=== PATIENT | female | born 1965 | race Two or more races ===

== ENCOUNTER 2025-07-01 13:23 | Inpatient (IN) | payer MEDICAID ==
[2025-07-01] VITALS (16 sets, daily range): BP systolic 60–170; BP diastolic 20–103; PULSE 92–111; RESP 26–47; TEMP 36.696; O2SAT 90–92
[~2025-07-01] VITALS: Ht 160 cm; Wt 89.8 kg
[2025-07-01] MEDS ORDERED: ALBU2.5V13 IH (13:31)
[2025-07-01] MEDS: SODIUM CHLORIDE 0.9% (SEPSIS BOLUS) IV ONE (13:53)
[2025-07-01] MEDS: ALBUTEROL (0.5%) 2.5MG/0.5ML NEB HHN ONE (14:01)
[2025-07-01] MEDS: IPRATROPIUM/ALBUTEROL 0.5-3(2.5)MG/3ML NEB HHN ONE (14:01)
[2025-07-01 14:03] LABS: BASOPHILS % 0.2 % (0.0-2.0); EOSINOPHILS % 0.0 % (0.0-5.0); HEMATOCRIT. 55.1 % (36.0-48.0); HEMOGLOBIN. 18.2 g/dL (12.0-16.0); LYMPHOCYTES % 10.6 % (20.0-50.0); MEAN PLATELET VOLUME 9.3 fl (7.4-10.4); MONOCYTES % 13.5 % (2.0-8.0); NEUTROPHILS % 75.7 % (40.0-76.0); PLATELET 191 x1000/uL (130-400); RED BLOOD CELL COUNT 6.04 mill/uL (4.2-5.4); RED CELL DISTRIBUTION WIDTH 13.6 % (11.6-14.6)
[2025-07-01] MEDS: PIPERACILLIN/TAZO 3.375G/50ML 50 ML IV ONE (14:04)
[2025-07-01] MEDS: METHYLPREDNISOLONE SOD SUCC 125MG/2ML (ACT-O-VIAL) IV ONE (14:04)
[2025-07-01 14:13] LABS: INR 1.0
[2025-07-01 14:17] LABS: CREATININE 2.9 mg/dL (0.6-1.0); UREA NITROGEN BLOOD 25 mg/dL (9-23)
[2025-07-01 14:18] LABS: TROPONIN I HIGH SENSITIVITY 6 ng/L (3.0-34)
[2025-07-01 14:19] LABS: ASPARTATE AMINOTRANSFERASE 63 IU/L (<34); BILIRUBIN DIRECT 0.1 mg/dL (<=3.0); BILIRUBIN TOTAL 0.4 mg/dL (0.1-1.0); PROTEIN TOTAL 6.7 g/dL (6.0-8.3)
[2025-07-01] MEDS: VANCOMYCIN 1G PREMIX 200 ML IV ONE (14:34)
[2025-07-01] MEDS ORDERED: IPRATROPIUM/ALBUTEROL 0.5-3(2.5)MG/3ML NEB HHN PRN (16:15)
[2025-07-01] MEDS ORDERED: MAGNESIUM/ALUMINUM HYDROXIDE/SIMETHICONE 30ML UDC PO PRN (16:15)
[2025-07-01] MEDS ORDERED: CLONIDINE 0.1MG TABLET PO PRN (16:15)
[2025-07-01] MEDS ORDERED: DOCUSATE SODIUM 100MG CAPSULE PO PRN (16:15)
[2025-07-01] MEDS: SODIUM CHLORIDE 0.9% 1,000 ML IV ONE (16:31)
[2025-07-01] MEDS: PANTOPRAZOLE SODIUM 40 MG/VIAL IV SCH (16:34)
[2025-07-01] MEDS ORDERED: VANCOMYCIN 500 MG in DEXT 5% WATER 100 ML IV SCH (16:45)
[2025-07-01 16:49] LABS: BG BASE EXCESS -8.9 mmol/L (-2.0-3.0); BG CARBOXYHEMOGLOBIN 0.2 % (0.5-1.5); BG DEOXYHEMOGLOBIN 0.9 % (0.0-5.0); BG FRACTION INSPIRED OXYGEN 60; BG HCO3 ACT 16.5 mmol/L (21.0-28.0); BG METHEMOGLOBIN 0.4 % (0.5-1.5); BG OXYGEN SATURATION 99.1 % (94.0-98.0); BG OXYHEMOGLOBIN 98.5 % (94.0-98.0); BG PCO2 35.0 mmHg (32.0-45.0); BG PH 7.291 (7.350-7.450); BG PO2 173.6 mmHg (83.0-108.0); BG SAMPLE SITE RIGHT RADIAL; BG TOTAL HEMOGLOBIN 19.2 g/dL (12.0-16.0); BG VENT MODE MASK - BIPAP; BG VENT RATE 14.0 set
[2025-07-01] MEDS ORDERED: AZITHROMYCIN 500MG/250ML 250 ML IV SCH (17:00)
[2025-07-01] MEDS ORDERED: LOSA50TA41 PO (17:58)
[2025-07-01] MEDS ORDERED: LEVO50TA8 PO (17:58)
[2025-07-01] MEDS: NOREPINEPHRINE 8MG/250ML PMX 250 ML IV PRN (18:37)
[2025-07-01] MEDS: SODIUM CHLORIDE 0.9% 500 ML IV NR (18:40)
[2025-07-01] MEDS ORDERED: PNEUMOCOCCAL 20-VAL CONJ-DIP CRM 0.5ML IM ONE (19:30)
[2025-07-01] MEDS: NOREPINEPHRINE 32 MG in DEXT 5% WATER 218 ML IV PRN (21:49)
[2025-07-01] MEDS: LACTATED RINGERS 1,000 ML IV SCH (21:50)
[2025-07-01] MEDS: CEFEPIME 1GM/50ML 50 ML IV SCH (21:50)
[2025-07-01] MEDS: AZITHROMYCIN 500MG/250ML 250 ML IV SCH (21:50)
[2025-07-01] MEDS: SENNOSIDES/DOCUSATE SOD 8.6/50MG TABLET PO SCH (21:50)
[2025-07-01] MEDS: ENOXAPARIN 30MG/0.3ML SYR SUBCUT SCH (21:51)
[2025-07-01] MEDS ORDERED: SODIUM CHLORIDE 0.9% 500 ML IV SCH (22:30)
[2025-07-01 23:17] LABS: TROPONIN I HIGH SENSITIVITY 9 ng/L (3.0-34)
[2025-07-02] VITALS (107 sets, daily range): BP systolic 54–155; BP diastolic 15–138; PULSE 95–166; RESP 11–52; TEMP 36.7–37.1; O2SAT 93–100
[2025-07-02] MEDS: IPRATROPIUM/ALBUTEROL 0.5-3(2.5)MG/3ML NEB HHN SCH (00:02)
[2025-07-02 00:07] LABS: HEPATITIS C AB NON REACTIVE (Neg) (Negative)
[2025-07-02 03:01] LABS: BG BASE EXCESS -13.5 mmol/L (-2.0-3.0); BG CARBOXYHEMOGLOBIN 0.3 % (0.5-1.5); BG DEOXYHEMOGLOBIN 4.7 % (0.0-5.0); BG FRACTION INSPIRED OXYGEN 30; BG HCO3 ACT 12.1 mmol/L (21.0-28.0); BG METHEMOGLOBIN 0.3 % (0.5-1.5); BG OXYGEN SATURATION 95.3 % (94.0-98.0); BG OXYHEMOGLOBIN 94.7 % (94.0-98.0); BG PCO2 29.5 mmHg (32.0-45.0); BG PH 7.230 (7.350-7.450); BG PO2 83.9 mmHg (83.0-108.0); BG SAMPLE SITE RIGHT BRACHIAL; BG TOTAL HEMOGLOBIN 21.6 g/dL (12.0-16.0); BG VENT MODE MASK - BIPAP
[2025-07-02] MEDS: MORPHINE SULFATE 2 MG/ML INJ (NOT FOR IM USE) IV NR (04:51)
[2025-07-02 06:10] LABS: BASOPHILS % 0.2 % (0.0-2.0); EOSINOPHILS % 0.0 % (0.0-5.0); HEMOGLOBIN. 19.9 g/dL (12.0-16.0); LYMPHOCYTES % 8.3 % (20.0-50.0); MEAN PLATELET VOLUME 9.3 fl (7.4-10.4); MONOCYTES % 12.7 % (2.0-8.0); NEUTROPHILS % 78.8 % (40.0-76.0); PLATELET 153 x1000/uL (130-400); RED BLOOD CELL COUNT 6.47 mill/uL (4.2-5.4); RED CELL DISTRIBUTION WIDTH 14.0 % (11.6-14.6)
[2025-07-02] MEDS: LEVOTHYROXINE SODIUM 50MCG TABLET PO SCH (06:25)
[2025-07-02 06:36] LABS: TROPONIN I HIGH SENSITIVITY 9.0 ng/L (3.0-34)
[2025-07-02 06:41] LABS: T4 FREE 1.26 ng/dL (0.89-1.76)
[2025-07-02 07:07] LABS: HEMATOCRIT. 60.4 % (36.0-48.0)
[2025-07-02] MEDS ORDERED: LIDOCAINE HCL 1% 10 MG/ML 10ML VIAL ONE ×3 (07:59→12:43)
[2025-07-02] MEDS: CEFEPIME 1GM/50ML 50 ML IV SCH (08:13)
[2025-07-02] MEDS: PHENYLEPHRINE 50MG/250ML PMX 250 ML IV PRN (08:38)
[2025-07-02] MEDS: VASOPRESSIN 20 UNIT in SODIUM CHLORIDE 0.9% 99 ML IV PRN (09:08)
[2025-07-02 09:40] LABS: CREATININE 3.7 mg/dL (0.6-1.0)
[2025-07-02 09:41] LABS: LDL CHOLESTEROL 90.0 mg/dL (5-100); TRIGLYCERIDE 631.0 mg/dL (0-150); UREA NITROGEN BLOOD 29.0 mg/dL (9-23)
[2025-07-02] MEDS: SODIUM BICARBONATE 8.4% 50MEQ/50ML SYR IV NR (09:53)
[2025-07-02 11:03] LABS: BG BASE EXCESS -5.8 mmol/L (-2.0-3.0); BG CARBOXYHEMOGLOBIN 0.3 % (0.5-1.5); BG DEOXYHEMOGLOBIN 3.2 % (0.0-5.0); BG FRACTION INSPIRED OXYGEN 40; BG HCO3 ACT 20.0 mmol/L (21.0-28.0); BG METHEMOGLOBIN 0.5 % (0.5-1.5); BG OXYGEN SATURATION 96.8 % (94.0-98.0); BG OXYHEMOGLOBIN 96.0 % (94.0-98.0); BG PCO2 41.0 mmHg (32.0-45.0); BG PH 7.307 (7.350-7.450); BG PO2 89.1 mmHg (83.0-108.0); BG SAMPLE SITE RIGHT RADIAL; BG TOTAL HEMOGLOBIN 20.5 g/dL (12.0-16.0); BG TOTAL RESPIRATORY RATE 42 b/min; BG VENT MODE MASK - BIPAP; BG VENT RATE 16.0 set
[2025-07-02] MEDS ORDERED: EPINEPHRINE 10 MG in SODIUM CHLORIDE 0.9% 240 ML IV PRN (11:15)
[2025-07-02] MEDS: VANCOMYCIN 1GM PMX (XELLIA) 200 ML IV SCH (12:11)
[2025-07-02] MEDS: SODIUM BICARBONATE 150 MEQ in DEXTROSE 5% WATER 850 ML IV SCH (12:50)
[2025-07-02 13:31] LABS: HEPATITIS A AB IGM NEGATIVE (Negative)
[2025-07-02 13:32] LABS: HEPATITIS B CORE AB IGM NEGATIVE (Negative); HEPATITIS C AB NON REACTIVE (Neg) (Negative)
[2025-07-02] MEDS ORDERED: DEXTROSE 50% WATER 50ML SYRINGE IV PRN (16:45)
[2025-07-02] MEDS ORDERED: FENTANYL CITRATE/PF 2,500 MCG in SODIUM CHLORIDE 0.9% 200 ML IV PRN (17:00)
[2025-07-02] MEDS: MIDAZOLAM 100MG/100ML PMX 100 ML IV PRN (17:14)
[2025-07-02] MEDS: BLOOD SUGAR DIAGNOSTIC STRIP TEST SCH (17:19)
[2025-07-02] MEDS: FENTANYL CITRATE/PF 2,500 MCG in SODIUM CHLORIDE 0.9% 200 ML IV PRN (17:35)
[2025-07-02] MEDS: INSULIN LISPRO 100 UNITS/ML SUBCUT SCH (18:53)
[2025-07-02] MEDS: METHYLPREDNISOLONE SOD SUCC 125MG/2ML (ACT-O-VIAL) IV SCH (18:53)
[2025-07-02 19:03] LABS: BG BASE EXCESS -2.8 mmol/L (-2.0-3.0); BG CARBOXYHEMOGLOBIN 0.2 % (0.5-1.5); BG DEOXYHEMOGLOBIN 0.2 % (0.0-5.0); BG FRACTION INSPIRED OXYGEN 100; BG HCO3 ACT 21.4 mmol/L (21.0-28.0); BG METHEMOGLOBIN 0.6 % (0.5-1.5); BG OXYGEN SATURATION 99.8 % (94.0-98.0); BG OXYHEMOGLOBIN 99.0 % (94.0-98.0); BG PCO2 36.6 mmHg (32.0-45.0); BG PEEP (cmH2O) 5.0 cmH2O; BG PH 7.385 (7.350-7.450); BG PO2 320.1 mmHg (83.0-108.0); BG SAMPLE SITE RIGHT RADIAL; BG TIDAL VOLUME(mL) 450.0 mL; BG TOTAL HEMOGLOBIN 21.0 g/dL (12.0-16.0); BG VENT MODE VENT - AC; BG VENT RATE 20.0 set
[2025-07-02] MEDS: PHENYLEPHRINE 100 MG in DEXT 5% WATER 240 ML IV PRN (20:51)
[2025-07-03] VITALS (107 sets, daily range): BP systolic 42–183; BP diastolic 21–142; PULSE 85–130; RESP 17–37; TEMP 36.2–36.9; O2SAT 91–100
[2025-07-03 05:33] LABS: BASOPHILS % 0.2 % (0.0-2.0); EOSINOPHILS % 1.9 % (0.0-5.0); HEMATOCRIT. 51.1 % (36.0-48.0); HEMOGLOBIN. 17.4 g/dL (12.0-16.0); LYMPHOCYTES % 9.3 % (20.0-50.0); MEAN PLATELET VOLUME 10.7 fl (7.4-10.4); MONOCYTES % 10.8 % (2.0-8.0); NEUTROPHILS % 77.8 % (40.0-76.0); PLATELET 136 x1000/uL (130-400); RED BLOOD CELL COUNT 5.71 mill/uL (4.2-5.4); RED CELL DISTRIBUTION WIDTH 13.6 % (11.6-14.6)
[2025-07-03 06:11] LABS: CREATININE 3.3 mg/dL (0.6-1.0); UREA NITROGEN BLOOD 31 mg/dL (9-23)
[2025-07-03 06:13] LABS: ASPARTATE AMINOTRANSFERASE 43 IU/L (<34); BILIRUBIN DIRECT 0.1 mg/dL (<=3.0); BILIRUBIN TOTAL 0.4 mg/dL (0.1-1.0); PHOSPHORUS 3.2 mg/dL (2.5-4.9)
[2025-07-03] MEDS ORDERED: DEXTROSE 50% WATER 50ML SYRINGE IV PRN (06:15)
[2025-07-03] MEDS ORDERED: INSULIN LISPRO 100 UNITS/ML SUBCUT ONE (06:15)
[2025-07-03 06:28] LABS: PROTEIN TOTAL 4.7 g/dL (6.0-8.3)
[2025-07-03] MEDS: INSULIN LISPRO 100 UNITS/ML SUBCUT SCH ×3 (06:29→11:03)
[2025-07-03 07:39] LABS: SODIUM URINE RANDOM 38 mEq/L
[2025-07-03] MEDS: BLOOD SUGAR DIAGNOSTIC STRIP TEST SCH (08:15)
[2025-07-03 09:41] LABS: OSMOLALITY URINE 396 mOsm/kg (500-850)
[2025-07-03] MEDS: METHYLPREDNISOLONE SOD SUCC 40MG/ML (ACT-O-VIAL) IV SCH (10:54)
[2025-07-03 11:01] LABS: BG BASE EXCESS 4.0 mmol/L (-2.0-3.0); BG CARBOXYHEMOGLOBIN 0.2 % (0.5-1.5); BG DEOXYHEMOGLOBIN 3.2 % (0.0-5.0); BG FRACTION INSPIRED OXYGEN 40; BG HCO3 ACT 26.5 mmol/L (21.0-28.0); BG METHEMOGLOBIN 0.4 % (0.5-1.5); BG OXYGEN SATURATION 96.8 % (94.0-98.0); BG OXYHEMOGLOBIN 96.2 % (94.0-98.0); BG PCO2 34.4 mmHg (32.0-45.0); BG PEEP (cmH2O) 5.0 cmH2O; BG PH 7.505 (7.350-7.450); BG PO2 84.6 mmHg (83.0-108.0); BG SAMPLE SITE RIGHT RADIAL; BG TIDAL VOLUME(mL) 450.0 mL; BG TOTAL HEMOGLOBIN 19.8 g/dL (12.0-16.0); BG TOTAL RESPIRATORY RATE 20 b/min; BG VENT MODE ROOM AIR; BG VENT RATE 20.0 set
[2025-07-03] MEDS: PHENYLEPHRINE 100 MG in SODIUM CHLORIDE 0.9% 240 ML IV PRN (18:44)
[2025-07-03 21:34] LABS: CLARITY URINE CLEAR (CLEAR); COLOR URINE YELLOW (YELLOW); GLUCOSE URINE 3+ (NEGATIVE); KETONES URINE TRACE (NEGATIVE); LEUKOCYTE ESTERASE URINE NEGATIVE (NEGATIVE); NITRITE URINE NEGATIVE (NEGATIVE); OCCULT BLOOD URINE 2+ (NEGATIVE); PH URINE 5.5 (4.5-8.0); PROTEIN URINE 2+ (NEGATIVE); SPECIFIC GRAVITY URINE 1.019 (1.005-1.030); UROBILINOGEN URINE 0.2 E.U./dL (0.2-1.0)
[2025-07-03 21:49] LABS: BACTERIA URINE 2+; SQUAMOUS EPITHELIAL CELL URINE FEW /lpf (RARE/1+)
[2025-07-03 21:50] LABS: COARSE GRANULAR CASTS URINE 0-5 /lpf; WBC URINE 0-2 /hpf (0-2)
[2025-07-04] VITALS (110 sets, daily range): BP systolic 58–142; BP diastolic 27–91; PULSE 87–185; RESP 0–31; TEMP 36.1–37.1; O2SAT 92–100
[2025-07-04 04:57] LABS: HEMATOCRIT. 47.8 % (36.0-48.0); HEMOGLOBIN. 15.9 g/dL (12.0-16.0); MEAN PLATELET VOLUME 10.2 fl (7.4-10.4); PLATELET 151 x1000/uL (130-400); RED BLOOD CELL COUNT 5.34 mill/uL (4.2-5.4); RED CELL DISTRIBUTION WIDTH 13.9 % (11.6-14.6)
[2025-07-04 05:03] LABS: CREATININE 2.5 mg/dL (0.6-1.0); UREA NITROGEN BLOOD 33 mg/dL (9-23)
[2025-07-04 05:05] LABS: ASPARTATE AMINOTRANSFERASE 47 IU/L (<34)
[2025-07-04 05:07] LABS: BILIRUBIN DIRECT 0.2 mg/dL (<=3.0); PHOSPHORUS 3.1 mg/dL (2.5-4.9)
[2025-07-04 05:08] LABS: BILIRUBIN TOTAL 0.5 mg/dL (0.1-1.0); PROTEIN TOTAL 4.7 g/dL (6.0-8.3)
[2025-07-04] MEDS: NOREPINEPHRINE 32 MG in SODIUM CHLORIDE 0.9% 218 ML IV PRN (05:56)
[2025-07-04] MEDS: POTASSIUM CHLORIDE 20MEQ/PACKET PO NR (06:14)
[2025-07-04] MEDS ORDERED: KCL 20MEQ/100ML PREMIX 100 ML IV SCH (08:00)
[2025-07-04] MEDS: CALCIUM GLUCONATE 1GM PREMIX 50 ML IV NR (08:59)
[2025-07-04 09:18] LABS: LYMPHOCYTES % MANUAL 3.0 % (20.0-60.0); MONOCYTES % MANUAL 2.0 % (2.0-8.0); NEUTROPHILS % MANUAL 95.0 % (45.0-75.0); PLATELET ESTIMATE NORMAL
[2025-07-04 09:22] LABS: BG BASE EXCESS 7.9 mmol/L (-2.0-3.0); BG CARBOXYHEMOGLOBIN 0.6 % (0.5-1.5); BG DEOXYHEMOGLOBIN 1.3 % (0.0-5.0); BG FRACTION INSPIRED OXYGEN 70; BG HCO3 ACT 32.0 mmol/L (21.0-28.0); BG METHEMOGLOBIN 0.2 % (0.5-1.5); BG OXYGEN SATURATION 98.7 % (94.0-98.0); BG OXYHEMOGLOBIN 97.9 % (94.0-98.0); BG PCO2 42.5 mmHg (32.0-45.0); BG PEEP (cmH2O) 5.0 cmH2O; BG PH 7.495 (7.350-7.450); BG PO2 127.2 mmHg (83.0-108.0); BG SAMPLE SITE RIGHT RADIAL; BG TIDAL VOLUME(mL) 450.0 mL; BG TOTAL HEMOGLOBIN 16.2 g/dL (12.0-16.0); BG VENT MODE VENT - AC; BG VENT RATE 20.0 set
[2025-07-04] MEDS: VANCOMYCIN 1.5GM PMX (XELLIA) 300 ML IV SCH (11:37)
[2025-07-04] MEDS: DIGOXIN 500MCG/2ML AMP IV NR (11:38)
[2025-07-04] MEDS ORDERED: AMIODARONE HCL 150 MG in DEXT 5% WATER 100 ML IV ONE (14:15)
[2025-07-04] MEDS ORDERED: AMIODARONE HCL 900 MG in DEXT 5% WATER 482 ML IV SCH (14:15)
[2025-07-04] MEDS: AMIODARONE 150MG/100ML PREMIX IV SCH (15:05)
[2025-07-04] MEDS: AMIODARONE 360MG/200ML D5W PREMIX IV SCH (15:49)
[2025-07-04] MEDS: MIDODRINE HCL 5MG TABLET PO SCH (18:21)
[2025-07-04] MEDS: ENOXAPARIN 80MG/0.8ML SYR SUBCUT SCH (18:22)
[2025-07-04] MEDS: PIPERACILLIN/TAZO 3.375G/50ML 50 ML IV SCH (20:16)
[2025-07-05] VITALS (109 sets, daily range): BP systolic 63–148; BP diastolic 36–109; PULSE 80–130; RESP 8–39; TEMP 36.2–36.6; O2SAT 91–99
[2025-07-05] MEDS: PROPOFOL 10MG/ML 100ML 100 ML IV PRN (02:43)
[2025-07-05 06:10] LABS: UREA NITROGEN BLOOD 26 mg/dL (9-23)
[2025-07-05 06:11] LABS: HEMATOCRIT. 43.1 % (36.0-48.0); HEMOGLOBIN. 14.3 g/dL (12.0-16.0); MEAN PLATELET VOLUME 10.3 fl (7.4-10.4); PLATELET 172 x1000/uL (130-400); RED BLOOD CELL COUNT 4.79 mill/uL (4.2-5.4); RED CELL DISTRIBUTION WIDTH 13.6 % (11.6-14.6)
[2025-07-05 06:13] LABS: ASPARTATE AMINOTRANSFERASE 71 IU/L (<34); BILIRUBIN DIRECT 0.2 mg/dL (<=3.0); BILIRUBIN TOTAL 0.6 mg/dL (0.1-1.0); PHOSPHORUS 2.7 mg/dL (2.5-4.9); PROTEIN TOTAL 4.7 g/dL (6.0-8.3)
[2025-07-05 06:27] LABS: CREATININE 1.6 mg/dL (0.6-1.0)
[2025-07-05 09:54] LABS: BG BASE EXCESS 11.3 mmol/L (-2.0-3.0); BG CARBOXYHEMOGLOBIN 1.4 % (0.5-1.5); BG DEOXYHEMOGLOBIN 4.0 % (0.0-5.0); BG FRACTION INSPIRED OXYGEN 40; BG HCO3 ACT 36.2 mmol/L (21.0-28.0); BG METHEMOGLOBIN 0.2 % (0.5-1.5); BG OXYGEN SATURATION 95.9 % (94.0-98.0); BG OXYHEMOGLOBIN 94.4 % (94.0-98.0); BG PCO2 47.1 mmHg (32.0-45.0); BG PEEP (cmH2O) 5.0 cmH2O; BG PH 7.503 (7.350-7.450); BG PO2 74.2 mmHg (83.0-108.0); BG SAMPLE SITE RIGHT RADIAL; BG TIDAL VOLUME(mL) 450.0 mL; BG TOTAL HEMOGLOBIN 15.2 g/dL (12.0-16.0); BG VENT MODE VENT - AC; BG VENT RATE 20.0 set
[2025-07-05 13:02] LABS: LYMPHOCYTES % MANUAL 2.0 % (20.0-60.0); MONOCYTES % MANUAL 6.0 % (2.0-8.0); NEUTROPHILS % MANUAL 92.0 % (45.0-75.0); PLATELET ESTIMATE NORMAL
[2025-07-05] MEDS: ACETAMINOPHEN 325MG TABLET PO PRN (14:41)
[2025-07-05] MEDS: ENOXAPARIN 100MG/ML SYR SUBCUT SCH (16:15)
[2025-07-05] MEDS: MIDODRINE HCL 5MG TABLET PO SCH (21:02)
[2025-07-05] MEDS: AMIODARONE 200MG TABLET PO SCH (21:02)
[2025-07-05] MEDS: INSULIN GLARGINE 100 UNITS/ML SUBCUT SCH (21:05)
[2025-07-06] VITALS (108 sets, daily range): BP systolic 69–127; BP diastolic 39–76; PULSE 61–114; RESP 0–24; TEMP 36.2–36.9; O2SAT 90–98
[2025-07-06 05:52] LABS: HEMATOCRIT. 40.6 % (36.0-48.0); HEMOGLOBIN. 13.5 g/dL (12.0-16.0); MEAN PLATELET VOLUME 10.4 fl (7.4-10.4); PLATELET 223 x1000/uL (130-400); RED BLOOD CELL COUNT 4.51 mill/uL (4.2-5.4); RED CELL DISTRIBUTION WIDTH 13.7 % (11.6-14.6)
[2025-07-06 05:58] LABS: TRIGLYCERIDE 279 mg/dL (0-150)
[2025-07-06 06:00] LABS: CREATININE 1.1 mg/dL (0.6-1.0); UREA NITROGEN BLOOD 23 mg/dL (9-23)
[2025-07-06 06:02] LABS: ASPARTATE AMINOTRANSFERASE 179 IU/L (<34); BILIRUBIN DIRECT 0.3 mg/dL (<=3.0); BILIRUBIN TOTAL 0.7 mg/dL (0.1-1.0); PHOSPHORUS 2.0 mg/dL (2.5-4.9); PROTEIN TOTAL 5.0 g/dL (6.0-8.3)
[2025-07-06] MEDS: KCL 20MEQ/100ML PREMIX 100 ML IV SCH (08:56)
[2025-07-06 09:30] LABS: BG BASE EXCESS 13.1 mmol/L (-2.0-3.0); BG CARBOXYHEMOGLOBIN 0.6 % (0.5-1.5); BG DEOXYHEMOGLOBIN 1.5 % (0.0-5.0); BG FRACTION INSPIRED OXYGEN 50; BG HCO3 ACT 38.6 mmol/L (21.0-28.0); BG METHEMOGLOBIN 0.0 % (0.5-1.5); BG OXYGEN SATURATION 98.5 % (94.0-98.0); BG OXYHEMOGLOBIN 97.9 % (94.0-98.0); BG PCO2 52.0 mmHg (32.0-45.0); BG PEEP (cmH2O) 5.0 cmH2O; BG PH 7.489 (7.350-7.450); BG PO2 105.4 mmHg (83.0-108.0); BG SAMPLE SITE RIGHT RADIAL; BG TIDAL VOLUME(mL) 450.0 mL; BG TOTAL HEMOGLOBIN 14.3 g/dL (12.0-16.0); BG VENT MODE VENT - AC; BG VENT RATE 20.0 set
[2025-07-06] MEDS: POTASSIUM PHOSPHATE 30 MMOL in SODIUM CHLORIDE 0.9% 490 ML IV ONE (13:25)
[2025-07-06 14:52] LABS: BAND% 4.0 % (1.0-6.0); LYMPHOCYTES % MANUAL 2.0 % (20.0-60.0); MONOCYTES % MANUAL 11.0 % (2.0-8.0); NEUTROPHILS % MANUAL 83.0 % (45.0-75.0); PLATELET ESTIMATE NORMAL
[2025-07-06] MEDS: PIPERACILLIN/TAZO 3.375G/50ML IV SCH (16:30)
[2025-07-06] MEDS ORDERED: AZITHROMYCIN 500MG/250ML 250 ML IV SCH (21:00)
[2025-07-07] VITALS (102 sets, daily range): BP systolic 77–114; BP diastolic 43–64; PULSE 51–71; RESP 14–23; TEMP 36.8–37.2; O2SAT 90–100
[2025-07-07 05:34] LABS: HEMATOCRIT. 36.5 % (36.0-48.0); HEMOGLOBIN. 12.2 g/dL (12.0-16.0); MEAN PLATELET VOLUME 9.4 fl (7.4-10.4); PLATELET 238 x1000/uL (130-400); RED BLOOD CELL COUNT 4.00 mill/uL (4.2-5.4); RED CELL DISTRIBUTION WIDTH 13.8 % (11.6-14.6)
[2025-07-07 05:46] LABS: CREATININE 0.9 mg/dL (0.6-1.0); UREA NITROGEN BLOOD 22 mg/dL (9-23)
[2025-07-07 05:48] LABS: ASPARTATE AMINOTRANSFERASE 184 IU/L (<34); BILIRUBIN DIRECT 0.2 mg/dL (<=3.0); BILIRUBIN TOTAL 0.6 mg/dL (0.1-1.0); PHOSPHORUS 2.4 mg/dL (2.5-4.9); PROTEIN TOTAL 4.8 g/dL (6.0-8.3)
[2025-07-07 09:02] LABS: BG BASE EXCESS 13.4 mmol/L (-2.0-3.0); BG CARBOXYHEMOGLOBIN 1.0 % (0.5-1.5); BG DEOXYHEMOGLOBIN 2.3 % (0.0-5.0); BG FRACTION INSPIRED OXYGEN 45; BG HCO3 ACT 38.6 mmol/L (21.0-28.0); BG METHEMOGLOBIN 0.1 % (0.5-1.5); BG OXYGEN SATURATION 97.7 % (94.0-98.0); BG OXYHEMOGLOBIN 96.6 % (94.0-98.0); BG PCO2 51.1 mmHg (32.0-45.0); BG PEEP (cmH2O) 5.0 cmH2O; BG PH 7.496 (7.350-7.450); BG PO2 95.0 mmHg (83.0-108.0); BG SAMPLE SITE RIGHT RADIAL; BG TIDAL VOLUME(mL) 450.0 mL; BG TOTAL HEMOGLOBIN 12.7 g/dL (12.0-16.0); BG TOTAL RESPIRATORY RATE 16 b/min; BG VENT MODE VENT-PRVC; BG VENT RATE 16.0 set
[2025-07-07] MEDS: POTASSIUM-SODIUM PHOSPHATE POWDER PACKET PO NR (12:57)
[2025-07-07 15:50] LABS: BAND% 4.0 % (1.0-6.0); LYMPHOCYTES % MANUAL 4.0 % (20.0-60.0); METAMYELOCYTES % 2.0 % (0-0); MONOCYTES % MANUAL 4.0 % (2.0-8.0); MYELOCYTES % 2.0 % (0-0); NEUTROPHILS % MANUAL 84.0 % (45.0-75.0); PLATELET ESTIMATE NORMAL
[2025-07-07] MEDS: MIDODRINE HCL 5MG TABLET PO SCH (22:09)
[2025-07-07] MEDS: MIDAZOLAM 100MG/100ML PMX 100 ML IV PRN (23:16)
[2025-07-08] VITALS (100 sets, daily range): BP systolic 89–130; BP diastolic 51–69; PULSE 52–65; RESP 15–23; TEMP 37.1–37.6; O2SAT 90–100
[2025-07-08 05:28] LABS: HEMATOCRIT. 36.0 % (36.0-48.0); HEMOGLOBIN. 11.8 g/dL (12.0-16.0); MEAN PLATELET VOLUME 9.1 fl (7.4-10.4); PLATELET 272 x1000/uL (130-400); RED BLOOD CELL COUNT 3.92 mill/uL (4.2-5.4); RED CELL DISTRIBUTION WIDTH 13.6 % (11.6-14.6)
[2025-07-08 05:33] LABS: UREA NITROGEN BLOOD 27 mg/dL (9-23)
[2025-07-08 05:34] LABS: CREATININE 0.8 mg/dL (0.6-1.0)
[2025-07-08 05:36] LABS: ASPARTATE AMINOTRANSFERASE 233 IU/L (<34)
[2025-07-08 05:37] LABS: BILIRUBIN DIRECT 0.2 mg/dL (<=3.0); BILIRUBIN TOTAL 0.6 mg/dL (0.1-1.0); PHOSPHORUS 3.1 mg/dL (2.5-4.9); PROTEIN TOTAL 5.1 g/dL (6.0-8.3)
[2025-07-08 08:38] LABS: BG BASE EXCESS 12.0 mmol/L (-2.0-3.0); BG CARBOXYHEMOGLOBIN 0.7 % (0.5-1.5); BG DEOXYHEMOGLOBIN 2.2 % (0.0-5.0); BG FRACTION INSPIRED OXYGEN 45; BG HCO3 ACT 37.3 mmol/L (21.0-28.0); BG METHEMOGLOBIN 0.2 % (0.5-1.5); BG OXYGEN SATURATION 97.8 % (94.0-98.0); BG OXYHEMOGLOBIN 96.9 % (94.0-98.0); BG PCO2 51.1 mmHg (32.0-45.0); BG PEEP (cmH2O) 5.0 cmH2O; BG PH 7.481 (7.350-7.450); BG PO2 99.1 mmHg (83.0-108.0); BG SAMPLE SITE RIGHT RADIAL; BG TIDAL VOLUME(mL) 450.0 mL; BG TOTAL HEMOGLOBIN 12.7 g/dL (12.0-16.0); BG VENT MODE VENT - AC/PRVC; BG VENT RATE 16.0 set
[2025-07-08 10:51] LABS: LYMPHOCYTES % MANUAL 2.0 % (20.0-60.0); MONOCYTES % MANUAL 8.0 % (2.0-8.0); NEUTROPHILS % MANUAL 90.0 % (45.0-75.0); PLATELET ESTIMATE NORMAL
[2025-07-08] MEDS: GUAIFENESIN 200MG/10ML SUGAR FREE UDC PO SCH (11:37)
[2025-07-08] MEDS ORDERED: FENTANYL 2500MCG/250ML PMX 250 ML IV PRN (16:45)
[2025-07-08] MEDS: ACETAZOLAMIDE 500MG ER CAPSULE PO SCH (16:52)
[2025-07-08] MEDS: FENTANYL CITRATE 2,500 MCG in SODIUM CHLORIDE 0.9% 200 ML IV PRN (17:50)
[2025-07-08] MEDS: IPRATROPIUM/ALBUTEROL 0.5-3(2.5)MG/3ML NEB HHN SCH (21:06)
[2025-07-08 22:39] LABS: INR 0.9
[2025-07-09] VITALS (92 sets, daily range): BP systolic 46–128; BP diastolic 36–71; PULSE 50–82; RESP 14–26; TEMP 37.3–37.4; O2SAT 90–100
[2025-07-09] MEDS: ACETYLCYSTEINE 200MG/ML 20% VIAL 4ML INH SCH (00:36)
[2025-07-09] MEDS: LACTULOSE 20G/30ML UDC PO NR (01:55)
[2025-07-09 05:35] LABS: HEMATOCRIT. 34.4 % (36.0-48.0); HEMOGLOBIN. 11.3 g/dL (12.0-16.0); MEAN PLATELET VOLUME 9.3 fl (7.4-10.4); PLATELET 280 x1000/uL (130-400); RED BLOOD CELL COUNT 3.74 mill/uL (4.2-5.4); RED CELL DISTRIBUTION WIDTH 14.2 % (11.6-14.6)
[2025-07-09 05:58] LABS: CREATININE 0.9 mg/dL (0.6-1.0); UREA NITROGEN BLOOD 28 mg/dL (9-23)
[2025-07-09 06:00] LABS: ASPARTATE AMINOTRANSFERASE 216 IU/L (<34); BILIRUBIN DIRECT 0.2 mg/dL (<=3.0)
[2025-07-09 06:01] LABS: BILIRUBIN TOTAL 0.6 mg/dL (0.1-1.0); PROTEIN TOTAL 5.2 g/dL (6.0-8.3)
[2025-07-09 08:34] LABS: BAND% 3.0 % (1.0-6.0); LYMPHOCYTES % MANUAL 3.0 % (20.0-60.0); MONOCYTES % MANUAL 5.0 % (2.0-8.0); NEUTROPHILS % MANUAL 89.0 % (45.0-75.0); PLATELET ESTIMATE NORMAL
[2025-07-09 08:52] LABS: BG BASE EXCESS 7.2 mmol/L (-2.0-3.0); BG CARBOXYHEMOGLOBIN 0.4 % (0.5-1.5); BG DEOXYHEMOGLOBIN 4.1 % (0.0-5.0); BG FRACTION INSPIRED OXYGEN 30; BG HCO3 ACT 31.7 mmol/L (21.0-28.0); BG METHEMOGLOBIN 0.3 % (0.5-1.5); BG OXYGEN SATURATION 95.9 % (94.0-98.0); BG OXYHEMOGLOBIN 95.2 % (94.0-98.0); BG PCO2 44.6 mmHg (32.0-45.0); BG PEEP (cmH2O) 5.0 cmH2O; BG PH 7.470 (7.350-7.450); BG PO2 84.5 mmHg (83.0-108.0); BG SAMPLE SITE RIGHT RADIAL; BG TIDAL VOLUME(mL) 450.0 mL; BG TOTAL HEMOGLOBIN 11.4 g/dL (12.0-16.0); BG VENT MODE VENT - PRVC; BG VENT RATE 22.0 set
[2025-07-09] MEDS: ENOXAPARIN 100MG/ML SYR SUBCUT SCH (13:17)
[2025-07-10] VITALS (101 sets, daily range): BP systolic 94–137; BP diastolic 50–77; PULSE 60–108; RESP 18–50; TEMP 36.7–37.2; O2SAT 92–100
[2025-07-10 05:26] LABS: HEMATOCRIT. 33.6 % (36.0-48.0); HEMOGLOBIN. 11.0 g/dL (12.0-16.0); MEAN PLATELET VOLUME 8.8 fl (7.4-10.4); PLATELET 295 x1000/uL (130-400); RED BLOOD CELL COUNT 3.65 mill/uL (4.2-5.4); RED CELL DISTRIBUTION WIDTH 14.1 % (11.6-14.6)
[2025-07-10 05:52] LABS: CREATININE 0.8 mg/dL (0.6-1.0); UREA NITROGEN BLOOD 26 mg/dL (9-23)
[2025-07-10 05:54] LABS: ASPARTATE AMINOTRANSFERASE 202 IU/L (<34); BILIRUBIN DIRECT 0.2 mg/dL (<=3.0); BILIRUBIN TOTAL 0.7 mg/dL (0.1-1.0); PHOSPHORUS 3.9 mg/dL (2.5-4.9); PROTEIN TOTAL 5.3 g/dL (6.0-8.3)
[2025-07-10 08:44] LABS: BG BASE EXCESS 3.8 mmol/L (-2.0-3.0); BG CARBOXYHEMOGLOBIN 0.2 % (0.5-1.5); BG DEOXYHEMOGLOBIN 4.6 % (0.0-5.0); BG FRACTION INSPIRED OXYGEN 28; BG HCO3 ACT 27.9 mmol/L (21.0-28.0); BG METHEMOGLOBIN 0.3 % (0.5-1.5); BG OXYGEN SATURATION 95.4 % (94.0-98.0); BG OXYHEMOGLOBIN 94.9 % (94.0-98.0); BG PCO2 39.8 mmHg (32.0-45.0); BG PEEP (cmH2O) 5.0 cmH2O; BG PH 7.463 (7.350-7.450); BG PO2 75.1 mmHg (83.0-108.0); BG SAMPLE SITE RIGHT RADIAL; BG TIDAL VOLUME(mL) 450.0 mL; BG TOTAL HEMOGLOBIN 11.1 g/dL (12.0-16.0); BG VENT MODE VENT - AC/PRVC; BG VENT RATE 22.0 set
[2025-07-10 10:16] LABS: LYMPHOCYTES % MANUAL 3.0 % (20.0-60.0); MONOCYTES % MANUAL 6.0 % (2.0-8.0); NEUTROPHILS % MANUAL 91.0 % (45.0-75.0); PLATELET ESTIMATE NORMAL
[2025-07-10] MEDS: PREDNISONE 10MG TABLET PO SCH (16:42)
[2025-07-10] MEDS: PANTOPRAZOLE SODIUM 40 MG/VIAL IV SCH (20:39)
[2025-07-11] VITALS (107 sets, daily range): BP systolic 92–133; BP diastolic 54–79; PULSE 57–89; RESP 12–47; TEMP 36.6–37.6; O2SAT 90–100
[2025-07-11 05:38] LABS: HEMATOCRIT. 33.9 % (36.0-48.0); HEMOGLOBIN. 11.0 g/dL (12.0-16.0); MEAN PLATELET VOLUME 9.3 fl (7.4-10.4); PLATELET 270 x1000/uL (130-400); RED BLOOD CELL COUNT 3.67 mill/uL (4.2-5.4); RED CELL DISTRIBUTION WIDTH 13.9 % (11.6-14.6)
[2025-07-11 05:51] LABS: CREATININE 0.6 mg/dL (0.6-1.0)
[2025-07-11 05:52] LABS: UREA NITROGEN BLOOD 23 mg/dL (9-23)
[2025-07-11 05:53] LABS: ASPARTATE AMINOTRANSFERASE 226 IU/L (<34); BILIRUBIN DIRECT 0.2 mg/dL (<=3.0); PHOSPHORUS 2.9 mg/dL (2.5-4.9)
[2025-07-11 05:54] LABS: BILIRUBIN TOTAL 0.6 mg/dL (0.1-1.0); PROTEIN TOTAL 5.4 g/dL (6.0-8.3)
[2025-07-11 06:27] LABS: BAND% 3.0 % (1.0-6.0); LYMPHOCYTES % MANUAL 2.0 % (20.0-60.0); MONOCYTES % MANUAL 6.0 % (2.0-8.0); NEUTROPHILS % MANUAL 89.0 % (45.0-75.0)
[2025-07-11 06:28] LABS: PLATELET ESTIMATE NORMAL
[2025-07-11 11:08] LABS: BG BASE EXCESS 3.4 mmol/L (-2.0-3.0); BG CARBOXYHEMOGLOBIN 0.6 % (0.5-1.5); BG DEOXYHEMOGLOBIN 6.9 % (0.0-5.0); BG FRACTION INSPIRED OXYGEN 28; BG HCO3 ACT 27.7 mmol/L (21.0-28.0); BG METHEMOGLOBIN 0.3 % (0.5-1.5); BG OXYGEN SATURATION 93.0 % (94.0-98.0); BG OXYHEMOGLOBIN 92.2 % (94.0-98.0); BG PCO2 41.4 mmHg (32.0-45.0); BG PEEP (cmH2O) 5.0 cmH2O; BG PH 7.444 (7.350-7.450); BG PO2 65.1 mmHg (83.0-108.0); BG SAMPLE SITE LEFT RADIAL; BG TIDAL VOLUME(mL) 450.0 mL; BG TOTAL HEMOGLOBIN 12.5 g/dL (12.0-16.0); BG VENT MODE VENT - PRVC; BG VENT RATE 22.0 set
[2025-07-11] MEDS: FUROSEMIDE 40MG/4ML VIAL IVP NR (13:45)
[2025-07-11 14:09] LABS: IMMUNOGLOBULIN E TOTAL 13 IU/mL (6-495)
[2025-07-11] MEDS: METHYLPREDNISOLONE SOD SUCC 40MG/ML (ACT-O-VIAL) IV SCH (21:38)
[2025-07-11] MEDS: LACTULOSE 20G/30ML UDC PO SCH (21:38)
[2025-07-12] VITALS (106 sets, daily range): BP systolic 92–135; BP diastolic 61–80; PULSE 55–85; RESP 15–34; TEMP 36.7–37.4; O2SAT 91–99
[2025-07-12 05:40] LABS: HEMATOCRIT. 33.7 % (36.0-48.0); HEMOGLOBIN. 11.1 g/dL (12.0-16.0); MEAN PLATELET VOLUME 9.2 fl (7.4-10.4); PLATELET 251 x1000/uL (130-400); RED BLOOD CELL COUNT 3.68 mill/uL (4.2-5.4); RED CELL DISTRIBUTION WIDTH 14.4 % (11.6-14.6)
[2025-07-12 05:55] LABS: UREA NITROGEN BLOOD 23 mg/dL (9-23)
[2025-07-12 05:56] LABS: CREATININE 0.6 mg/dL (0.6-1.0)
[2025-07-12 05:58] LABS: ASPARTATE AMINOTRANSFERASE 185 IU/L (<34); BILIRUBIN DIRECT 0.2 mg/dL (<=3.0)
[2025-07-12 05:59] LABS: BILIRUBIN TOTAL 0.6 mg/dL (0.1-1.0); PHOSPHORUS 4.4 mg/dL (2.5-4.9); PROTEIN TOTAL 5.8 g/dL (6.0-8.3)
[2025-07-12 10:26] LABS: BAND% 2.0 % (1.0-6.0); LYMPHOCYTES % MANUAL 1.0 % (20.0-60.0); MONOCYTES % MANUAL 4.0 % (2.0-8.0); NEUTROPHILS % MANUAL 93.0 % (45.0-75.0); PLATELET ESTIMATE NORMAL
[2025-07-12] MEDS: FUROSEMIDE 40MG/4ML VIAL IVP NR (13:31)
[2025-07-12] MEDS: MELATONIN 3MG TABLET PO SCH (22:37)
[2025-07-13] VITALS (107 sets, daily range): BP systolic 108–148; BP diastolic 58–80; PULSE 54–101; RESP 19–35; TEMP 36.8–37.4; O2SAT 80–100
[2025-07-13 06:04] LABS: HEMATOCRIT. 33.2 % (36.0-48.0); HEMOGLOBIN. 11.0 g/dL (12.0-16.0); MEAN PLATELET VOLUME 9.1 fl (7.4-10.4); PLATELET 240 x1000/uL (130-400); RED BLOOD CELL COUNT 3.64 mill/uL (4.2-5.4); RED CELL DISTRIBUTION WIDTH 14.1 % (11.6-14.6)
[2025-07-13 06:16] LABS: CREATININE 0.6 mg/dL (0.6-1.0); UREA NITROGEN BLOOD 28 mg/dL (9-23)
[2025-07-13 06:18] LABS: ASPARTATE AMINOTRANSFERASE 120 IU/L (<34); BILIRUBIN DIRECT 0.2 mg/dL (<=3.0); PHOSPHORUS 4.1 mg/dL (2.5-4.9)
[2025-07-13 06:19] LABS: BILIRUBIN TOTAL 0.5 mg/dL (0.1-1.0); PROTEIN TOTAL 5.9 g/dL (6.0-8.3)
[2025-07-13] MEDS: KCL 20MEQ/100ML PREMIX 100 ML IV NR (10:09)
[2025-07-13 12:14] LABS: BAND% 7.0 % (1.0-6.0); LYMPHOCYTES % MANUAL 5.0 % (20.0-60.0); MONOCYTES % MANUAL 3.0 % (2.0-8.0); NEUTROPHILS % MANUAL 85.0 % (45.0-75.0); PLATELET ESTIMATE NORMAL
[2025-07-13] MEDS ORDERED: FENTANYL CITRATE 2,500 MCG in SODIUM CHLORIDE 0.9% 200 ML IV PRN (14:00)
[2025-07-13] MEDS: FENTANYL 2500MCG/250ML PMX 250 ML IV PRN (14:28)
[2025-07-13] MEDS: TERBUTALINE SULFATE 1MG/ML VIAL SUBCUT NR (14:29)
[2025-07-13] MEDS: MIDODRINE HCL 5MG TABLET PO SCH (14:29)
[2025-07-13] MEDS: LORAZEPAM 2MG/ML UD SYRINGE IV PRN (16:14)
[2025-07-13] MEDS: ENOXAPARIN 100MG/ML SYR SUBCUT SCH (21:32)
[2025-07-14] VITALS (97 sets, daily range): BP systolic 102–142; BP diastolic 59–118; PULSE 52–99; RESP 21–38; TEMP 36.8–37.4; O2SAT 89–100
[2025-07-14 08:57] LABS: HEMATOCRIT. 32.5 % (36.0-48.0); HEMOGLOBIN. 10.6 g/dL (12.0-16.0); MEAN PLATELET VOLUME 8.8 fl (7.4-10.4); PLATELET 215 x1000/uL (130-400); RED BLOOD CELL COUNT 3.54 mill/uL (4.2-5.4); RED CELL DISTRIBUTION WIDTH 14.0 % (11.6-14.6)
[2025-07-14 09:10] LABS: CREATININE 0.5 mg/dL (0.6-1.0); UREA NITROGEN BLOOD 24 mg/dL (9-23)
[2025-07-14 09:12] LABS: ASPARTATE AMINOTRANSFERASE 77 IU/L (<34); BILIRUBIN DIRECT 0.1 mg/dL (<=3.0); BILIRUBIN TOTAL 0.5 mg/dL (0.1-1.0); PHOSPHORUS 3.4 mg/dL (2.5-4.9); PROTEIN TOTAL 5.8 g/dL (6.0-8.3)
[2025-07-14 10:05] LABS: BAND% 3.0 % (1.0-6.0); LYMPHOCYTES % MANUAL 2.0 % (20.0-60.0); MONOCYTES % MANUAL 3.0 % (2.0-8.0); NEUTROPHILS % MANUAL 92.0 % (45.0-75.0); PLATELET ESTIMATE NORMAL
[2025-07-14 12:29] LABS: BG BASE EXCESS 5.4 mmol/L (-2.0-3.0); BG CARBOXYHEMOGLOBIN 0.1 % (0.5-1.5); BG DEOXYHEMOGLOBIN 1.5 % (0.0-5.0); BG FRACTION INSPIRED OXYGEN 40; BG HCO3 ACT 30.1 mmol/L (21.0-28.0); BG METHEMOGLOBIN 0.3 % (0.5-1.5); BG OXYGEN SATURATION 98.5 % (94.0-98.0); BG OXYHEMOGLOBIN 98.1 % (94.0-98.0); BG PCO2 44.3 mmHg (32.0-45.0); BG PEEP (cmH2O) 5.0 cmH2O; BG PH 7.450 (7.350-7.450); BG PO2 118.2 mmHg (83.0-108.0); BG SAMPLE SITE RIGHT RADIAL; BG TOTAL HEMOGLOBIN 12.0 g/dL (12.0-16.0); BG VENT MODE VENT - CPAP
[2025-07-14] MEDS: INSULIN LISPRO 100 UNITS/ML SUBCUT SCH (20:15)
[2025-07-15] VITALS (94 sets, daily range): BP systolic 97–159; BP diastolic 61–124; PULSE 51–96; RESP 18–38; TEMP 36.7–37.2; O2SAT 92–100
[2025-07-15 05:14] LABS: HEMATOCRIT. 32.3 % (36.0-48.0); HEMOGLOBIN. 10.8 g/dL (12.0-16.0); MEAN PLATELET VOLUME 9.4 fl (7.4-10.4); PLATELET 185 x1000/uL (130-400); RED BLOOD CELL COUNT 3.52 mill/uL (4.2-5.4); RED CELL DISTRIBUTION WIDTH 14.3 % (11.6-14.6)
[2025-07-15 05:26] LABS: CREATININE 0.5 mg/dL (0.6-1.0)
[2025-07-15 05:27] LABS: UREA NITROGEN BLOOD 24 mg/dL (9-23)
[2025-07-15 05:29] LABS: PHOSPHORUS 3.3 mg/dL (2.5-4.9)
[2025-07-15] MEDS: ONDANSETRON HCL 4MG/2ML INJ IV PRN (09:08)
[2025-07-15 12:34] LABS: BAND% 1.0 % (1.0-6.0); LYMPHOCYTES % MANUAL 2.0 % (20.0-60.0); MONOCYTES % MANUAL 2.0 % (2.0-8.0); NEUTROPHILS % MANUAL 95.0 % (45.0-75.0)
[2025-07-15 12:35] LABS: PLATELET ESTIMATE NORMAL
[2025-07-15 16:16] LABS: BG BASE EXCESS 5.0 mmol/L (-2.0-3.0); BG CARBOXYHEMOGLOBIN 0.4 % (0.5-1.5); BG DEOXYHEMOGLOBIN 1.3 % (0.0-5.0); BG FRACTION INSPIRED OXYGEN 40; BG HCO3 ACT 29.7 mmol/L (21.0-28.0); BG METHEMOGLOBIN 0.1 % (0.5-1.5); BG OXYGEN SATURATION 98.7 % (94.0-98.0); BG OXYHEMOGLOBIN 98.2 % (94.0-98.0); BG PCO2 44.0 mmHg (32.0-45.0); BG PEEP (cmH2O) 5.0 cmH2O; BG PH 7.447 (7.350-7.450); BG PO2 116.2 mmHg (83.0-108.0); BG SAMPLE SITE UC; BG TOTAL HEMOGLOBIN 12.9 g/dL (12.0-16.0); BG VENT MODE VENT - CPAP
[2025-07-15] MEDS: METHYLPREDNISOLONE SOD SUCC 125MG/2ML (ACT-O-VIAL) IV SCH (17:38)
[2025-07-15] MEDS: RACEPINEPHRINE 2.25% 0.5ML NEB VIAL HHN PRN (18:00)
[2025-07-15] MEDS: METHYLPREDNISOLONE SOD SUCC 40MG/ML (ACT-O-VIAL) IV SCH (23:46)
[2025-07-16] VITALS (37 sets, daily range): BP systolic 97–146; BP diastolic 54–84; PULSE 55–78; RESP 17–37; TEMP 36.1–37.1; O2SAT 92–99
[2025-07-16 05:50] LABS: HEMATOCRIT. 32.4 % (36.0-48.0); HEMOGLOBIN. 10.8 g/dL (12.0-16.0); MEAN PLATELET VOLUME 9.8 fl (7.4-10.4); PLATELET 170 x1000/uL (130-400); RED BLOOD CELL COUNT 3.50 mill/uL (4.2-5.4); RED CELL DISTRIBUTION WIDTH 14.0 % (11.6-14.6)
[2025-07-16 05:57] LABS: CREATININE 0.5 mg/dL (0.6-1.0); UREA NITROGEN BLOOD 23 mg/dL (9-23)
[2025-07-16 11:46] LABS: BAND% 2.0 % (1.0-6.0); LYMPHOCYTES % MANUAL 8.0 % (20.0-60.0); MONOCYTES % MANUAL 7.0 % (2.0-8.0); NEUTROPHILS % MANUAL 83.0 % (45.0-75.0); PLATELET ESTIMATE NORMAL
[2025-07-16] MEDS: MIDODRINE HCL 5MG TABLET PO SCH (14:18)
[2025-07-17] VITALS: BP 126/64; PULSE 60; RESP 17; TEMP 36.4; O2SAT 96
[2025-07-17 04:00] VITALS: BP 132/71; PULSE 64; RESP 16; TEMP 36.4; O2SAT 96
[2025-07-17 08:00] VITALS: BP 128/67; PULSE 71; RESP 20; TEMP 36.9; O2SAT 95
[2025-07-17 12:00] VITALS: BP 133/68; PULSE 64; RESP 20; TEMP 36.9; O2SAT 95
[2025-07-17 16:00] VITALS: BP 142/59; PULSE 65; RESP 18; TEMP 37.1; O2SAT 95
[2025-07-17] MEDS ORDERED: SIMETHICONE 80MG TABLET CHEW PO PRN (16:00)
[2025-07-17] MEDS ORDERED: IPRATROPIUM/ALBUTEROL 0.5-3(2.5)MG/3ML NEB HHN PRN (16:30)
[2025-07-17 20:00] VITALS: BP 144/68; PULSE 74; RESP 18; TEMP 37.2; O2SAT 97
[2025-07-17] MEDS: INSULIN GLARGINE 100 UNITS/ML SUBCUT SCH (22:00)
[2025-07-17] MEDS: METHYLPREDNISOLONE SOD SUCC 40MG/ML (ACT-O-VIAL) IV SCH (22:09)
[2025-07-18] VITALS: BP 135/69; PULSE 83; RESP 17; TEMP 36.4; O2SAT 95
[2025-07-18 04:00] VITALS: BP 122/68; PULSE 66; RESP 18; TEMP 36.4; O2SAT 95
[2025-07-18 06:29] LABS: HEMATOCRIT. 32.6 % (36.0-48.0); HEMOGLOBIN. 10.7 g/dL (12.0-16.0); MEAN PLATELET VOLUME 9.3 fl (7.4-10.4); PLATELET 132 x1000/uL (130-400); RED BLOOD CELL COUNT 3.53 mill/uL (4.2-5.4); RED CELL DISTRIBUTION WIDTH 14.0 % (11.6-14.6)
[2025-07-18 06:51] LABS: CREATININE 0.4 mg/dL (0.6-1.0); UREA NITROGEN BLOOD 12 mg/dL (9-23)
[2025-07-18 08:00] VITALS: BP 160/92; PULSE 81; RESP 18; TEMP 36.3; O2SAT 94
[2025-07-18 12:00] VITALS: BP 128/66; PULSE 95; RESP 18; TEMP 36.2; O2SAT 95
[2025-07-18 14:58] LABS: LYMPHOCYTES % MANUAL 4.0 % (20.0-60.0); MONOCYTES % MANUAL 2.0 % (2.0-8.0); NEUTROPHILS % MANUAL 94.0 % (45.0-75.0); PLATELET ESTIMATE NORMAL
[2025-07-18 16:00] VITALS: BP 119/63; PULSE 71; RESP 17; TEMP 36.9; O2SAT 98
[2025-07-18 20:00] VITALS: BP 121/62; PULSE 77; RESP 18; TEMP 36.8; O2SAT 97
[2025-07-19] VITALS: BP 127/68; PULSE 72; RESP 18; TEMP 36.1; O2SAT 98
[2025-07-19 04:00] VITALS: BP 128/69; PULSE 69; RESP 16; TEMP 36.4; O2SAT 96
[2025-07-19 08:00] VITALS: BP 131/73; PULSE 68; RESP 17; TEMP 36.3; O2SAT 98
[2025-07-19 10:06] LABS: BASOPHILS % 0.1 % (0.0-2.0); EOSINOPHILS % 0.0 % (0.0-5.0); HEMATOCRIT. 33.6 % (36.0-48.0); HEMOGLOBIN. 11.3 g/dL (12.0-16.0); LYMPHOCYTES % 8.0 % (20.0-50.0); MEAN PLATELET VOLUME 9.6 fl (7.4-10.4); MONOCYTES % 3.9 % (2.0-8.0); NEUTROPHILS % 88.0 % (40.0-76.0); PLATELET 131 x1000/uL (130-400); RED BLOOD CELL COUNT 3.66 mill/uL (4.2-5.4); RED CELL DISTRIBUTION WIDTH 14.0 % (11.6-14.6)
[2025-07-19 10:24] LABS: CREATININE 0.4 mg/dL (0.6-1.0)
[2025-07-19 10:25] LABS: UREA NITROGEN BLOOD 14 mg/dL (9-23)
[2025-07-19 10:27] LABS: ASPARTATE AMINOTRANSFERASE 64 IU/L (<34); BILIRUBIN DIRECT 0.3 mg/dL (<=3.0); BILIRUBIN TOTAL 0.9 mg/dL (0.1-1.0); PROTEIN TOTAL 6.0 g/dL (6.0-8.3)
[2025-07-19 12:00] VITALS: BP 135/70; PULSE 67; RESP 18; TEMP 36.6; O2SAT 94
[2025-07-19] MEDS: LORATADINE 10MG TABLET PO SCH (13:44)
[2025-07-19 15:15] LABS: BG BASE EXCESS 1.8 mmol/L (-2.0-3.0); BG CARBOXYHEMOGLOBIN 1.5 % (0.5-1.5); BG DEOXYHEMOGLOBIN 8.1 % (0.0-5.0); BG FRACTION INSPIRED OXYGEN 21; BG HCO3 ACT 24.3 mmol/L (21.0-28.0); BG METHEMOGLOBIN 0.2 % (0.5-1.5); BG OXYGEN SATURATION 91.8 % (94.0-98.0); BG OXYHEMOGLOBIN 90.2 % (94.0-98.0); BG PCO2 31.6 mmHg (32.0-45.0); BG PH 7.504 (7.350-7.450); BG PO2 57.7 mmHg (83.0-108.0); BG SAMPLE SITE RIGHT RADIAL; BG TOTAL HEMOGLOBIN 12.9 g/dL (12.0-16.0); BG VENT MODE ROOM AIR
[2025-07-19 16:00] VITALS: BP 132/78; PULSE 68; RESP 18; TEMP 36.5; O2SAT 97
[2025-07-19] MEDS: MONTELUKAST SODIUM 10MG TABLET PO SCH (18:03)
[2025-07-19] MEDS: METHYLPREDNISOLONE SOD SUCC 40MG/ML (ACT-O-VIAL) IV SCH (18:03)
[2025-07-19 20:00] VITALS: BP 116/71; PULSE 85; RESP 18; TEMP 36.2; O2SAT 96
[2025-07-19] MEDS: FAMOTIDINE 20MG/2ML VIAL IV SCH (21:45)
[2025-07-20] MEDS: GUAIFENESIN 200MG/10ML SUGAR FREE UDC PO PRN (02:31)
[2025-07-20 04:00] VITALS: BP 118/62; PULSE 65; RESP 18; TEMP 36.3; O2SAT 97
[2025-07-20] MEDS: INSULIN LISPRO 100 UNITS/ML SUBCUT SCH (06:00)
[2025-07-20 08:00] VITALS: BP 91/55; PULSE 96; RESP 18; TEMP 36.6; O2SAT 93
[2025-07-20 12:00] VITALS: BP 139/73; PULSE 102; RESP 18; TEMP 36.8; O2SAT 90
[2025-07-20 16:00] VITALS: BP 116/64; PULSE 89; RESP 18; TEMP 37.3; O2SAT 91
[2025-07-20] MEDS: BISACODYL 10MG SUPP PR NR (17:05)
[2025-07-20 20:00] VITALS: BP 129/71; PULSE 97; RESP 16; TEMP 37.1; O2SAT 97
[2025-07-20 21:10] LABS: BASOPHILS % 0.1 % (0.0-2.0); EOSINOPHILS % 4.1 % (0.0-5.0); HEMATOCRIT. 35.3 % (36.0-48.0); HEMOGLOBIN. 11.8 g/dL (12.0-16.0); LYMPHOCYTES % 11.4 % (20.0-50.0); MEAN PLATELET VOLUME 8.6 fl (7.4-10.4); MONOCYTES % 6.1 % (2.0-8.0); NEUTROPHILS % 78.3 % (40.0-76.0); PLATELET 134 x1000/uL (130-400); RED BLOOD CELL COUNT 3.83 mill/uL (4.2-5.4); RED CELL DISTRIBUTION WIDTH 14.5 % (11.6-14.6)
[2025-07-20 21:22] LABS: CREATININE 0.5 mg/dL (0.6-1.0)
[2025-07-20 21:23] LABS: UREA NITROGEN BLOOD 9 mg/dL (9-23)
[2025-07-20 21:24] LABS: ASPARTATE AMINOTRANSFERASE 58 IU/L (<34)
[2025-07-20 21:25] LABS: BILIRUBIN DIRECT 0.3 mg/dL (<=3.0); BILIRUBIN TOTAL 0.9 mg/dL (0.1-1.0); PHOSPHORUS 1.6 mg/dL (2.5-4.9); PROTEIN TOTAL 6.1 g/dL (6.0-8.3)
[2025-07-21] VITALS: BP 103/43; PULSE 94; RESP 16; TEMP 37.1; O2SAT 96
[2025-07-21] MEDS: BLOOD SUGAR DIAGNOSTIC STRIP TEST SCH (00:10)
[2025-07-21 04:00] VITALS: BP 108/59; PULSE 85; RESP 16; RESP 23; TEMP 37.4; O2SAT 95
[2025-07-21 08:00] VITALS: BP_SYST 121; PULSE 90; RESP 20; TEMP 36.6; O2SAT 94
[2025-07-21 08:02] LABS: ASPARTATE AMINOTRANSFERASE 53 IU/L (<34); BILIRUBIN DIRECT 0.4 mg/dL (<=3.0); BILIRUBIN TOTAL 1.1 mg/dL (0.1-1.0); PROTEIN TOTAL 5.8 g/dL (6.0-8.3)
[2025-07-21] MEDS: POLYETHYLENE GLYCOL 3350 (17GM) 1 DOSE PACK PO SCH (08:59)
[2025-07-21 12:00] VITALS: BP 128/69; PULSE 92; RESP 18; TEMP 36.7; O2SAT 95
[2025-07-21] MEDS: MAGNESIUM 2 G PREMIX 50 ML IV NR (12:23)
[2025-07-21] MEDS: MAGNESIUM OXIDE 400MG TABLET PO SCH (12:37)
[2025-07-21 16:00] VITALS: BP 118/53; PULSE 107; RESP 17; TEMP 36.6; O2SAT 96
[2025-07-21 20:00] VITALS: BP 115/60; PULSE 109; RESP 18; TEMP 37.6; O2SAT 95
[2025-07-22] VITALS: BP 137/69; PULSE 101; RESP 18; TEMP 37.3; O2SAT 96
[2025-07-22 04:00] VITALS: BP 141/73; PULSE 101; RESP 18; TEMP 37.3; O2SAT 96
[2025-07-22 06:42] LABS: BASOPHILS % 0.2 % (0.0-2.0); EOSINOPHILS % 3.9 % (0.0-5.0); HEMATOCRIT. 31.1 % (36.0-48.0); HEMOGLOBIN. 10.4 g/dL (12.0-16.0); LYMPHOCYTES % 10.1 % (20.0-50.0); MEAN PLATELET VOLUME 8.9 fl (7.4-10.4); MONOCYTES % 5.1 % (2.0-8.0); NEUTROPHILS % 80.7 % (40.0-76.0); PLATELET 116 x1000/uL (130-400); RED BLOOD CELL COUNT 3.38 mill/uL (4.2-5.4); RED CELL DISTRIBUTION WIDTH 14.3 % (11.6-14.6)
[2025-07-22 06:55] LABS: UREA NITROGEN BLOOD 7 mg/dL (9-23)
[2025-07-22 06:59] LABS: ASPARTATE AMINOTRANSFERASE 36 IU/L (<34); BILIRUBIN DIRECT 0.3 mg/dL (<=3.0); BILIRUBIN TOTAL 0.8 mg/dL (0.1-1.0)
[2025-07-22 07:00] LABS: PROTEIN TOTAL 5.7 g/dL (6.0-8.3)
[2025-07-22 07:01] LABS: CREATININE 0.3 mg/dL (0.6-1.0)
[2025-07-22 08:00] VITALS: BP 115/54; PULSE 109; RESP 18; TEMP 36.4; O2SAT 96
[2025-07-22] MEDS: POTASSIUM CHLORIDE 20MEQ TABLET SR PO NR (11:50)
[2025-07-22 12:00] VITALS: BP 126/61; PULSE 97; RESP 18; TEMP 35.9; O2SAT 96
[2025-07-22] MEDS: THROAT LOZENGES-BENZOCAINE/MENTH/CETYLPYRD CL LOZENGES MM SCH (13:15)
[2025-07-22 16:00] VITALS: BP 115/60; PULSE 110; RESP 18; TEMP 36.4; O2SAT 95
[2025-07-22 20:00] VITALS: BP 114/67; PULSE 106; RESP 18; TEMP 37.9; O2SAT 96
[2025-07-22] MEDS: ACETAMINOPHEN 325MG TABLET PO PRN (21:25)
[2025-07-23] VITALS: BP 116/42; PULSE 89; RESP 18; TEMP 36.8; O2SAT 100
[2025-07-23 04:00] VITALS: BP 108/56; PULSE 90; RESP 18; TEMP 36.8; O2SAT 99
[2025-07-23 06:29] LABS: UREA NITROGEN BLOOD 6 mg/dL (9-23)
[2025-07-23 06:31] LABS: ASPARTATE AMINOTRANSFERASE 26 IU/L (<34); BILIRUBIN DIRECT 0.3 mg/dL (<=3.0); BILIRUBIN TOTAL 0.8 mg/dL (0.1-1.0); PHOSPHORUS 2.1 mg/dL (2.5-4.9)
[2025-07-23 06:32] LABS: PROTEIN TOTAL 6.3 g/dL (6.0-8.3)
[2025-07-23 06:36] LABS: BASOPHILS % 0.2 % (0.0-2.0); EOSINOPHILS % 3.9 % (0.0-5.0); HEMATOCRIT. 35.4 % (36.0-48.0); HEMOGLOBIN. 11.5 g/dL (12.0-16.0); LYMPHOCYTES % 10.5 % (20.0-50.0); MEAN PLATELET VOLUME 8.4 fl (7.4-10.4); MONOCYTES % 3.9 % (2.0-8.0); NEUTROPHILS % 81.5 % (40.0-76.0); PLATELET 124 x1000/uL (130-400); RED BLOOD CELL COUNT 3.74 mill/uL (4.2-5.4); RED CELL DISTRIBUTION WIDTH 14.9 % (11.6-14.6)
[2025-07-23 06:41] LABS: CREATININE 0.4 mg/dL (0.6-1.0)
[2025-07-23 08:00] VITALS: BP 131/54; PULSE 102; RESP 18; TEMP 36.4; O2SAT 95
[2025-07-23 12:00] VITALS: BP 126/68; PULSE 112; RESP 19; TEMP 36; O2SAT 93
[2025-07-23 16:00] VITALS: BP 113/74; PULSE 111; RESP 18; TEMP 35.9; O2SAT 97
[2025-07-23 16:02] LABS: BG BASE EXCESS 3.3 mmol/L (-2.0-3.0); BG CARBOXYHEMOGLOBIN 0.7 % (0.5-1.5); BG DEOXYHEMOGLOBIN 18.7 % (0.0-5.0); BG FRACTION INSPIRED OXYGEN 21; BG HCO3 ACT 26.2 mmol/L (21.0-28.0); BG METHEMOGLOBIN 0.3 % (0.5-1.5); BG OXYGEN SATURATION 81.1 % (94.0-98.0); BG OXYHEMOGLOBIN 80.3 % (94.0-98.0); BG PCO2 33.6 mmHg (32.0-45.0); BG PH 7.510 (7.350-7.450); BG PO2 39.8 mmHg (83.0-108.0); BG SAMPLE SITE RIGHT RADIAL; BG TOTAL HEMOGLOBIN 10.5 g/dL (12.0-16.0); BG VENT MODE ROOM AIR
[2025-07-23 20:00] VITALS: BP 133/62; PULSE 107; RESP 17; TEMP 36.4; O2SAT 97
[2025-07-24] VITALS (7 sets, daily range): BP systolic 113–153; BP diastolic 57–81; PULSE 69–116; RESP 18–20; TEMP 36.1–37; O2SAT 92–98
[2025-07-24] MEDS ORDERED: IPRATROPIUM/ALBUTEROL 0.5-3(2.5)MG/3ML NEB HHN ONE (12:30)
[2025-07-24] MEDS ORDERED: IPRATROPIUM/ALBUTEROL 0.5-3(2.5)MG/3ML NEB HHN PRN (12:30)
[2025-07-24 16:11] LABS: HEMATOCRIT. 29.2 % (36.0-48.0); HEMOGLOBIN. 9.9 g/dL (12.0-16.0); MEAN PLATELET VOLUME 8.0 fl (7.4-10.4); PLATELET 154 x1000/uL (130-400); RED BLOOD CELL COUNT 3.14 mill/uL (4.2-5.4); RED CELL DISTRIBUTION WIDTH 14.6 % (11.6-14.6)
[2025-07-24 16:26] LABS: INR 1.1
[2025-07-24 16:33] LABS: CREATININE 0.3 mg/dL (0.6-1.0); UREA NITROGEN BLOOD 6 mg/dL (9-23)
[2025-07-24 16:35] LABS: ASPARTATE AMINOTRANSFERASE 30 IU/L (<34); BILIRUBIN TOTAL 0.6 mg/dL (0.1-1.0); PROTEIN TOTAL 6.3 g/dL (6.0-8.3)
[2025-07-24 19:05] LABS: BAND% 1.0 % (1.0-6.0); BASOPHILS % MANUAL 1.0 % (0.0-2.0); EOSINOPHILS % MANUAL 1.0 % (0.0-5.0); LYMPHOCYTES % MANUAL 8.0 % (20.0-60.0); MONOCYTES % MANUAL 3.0 % (2.0-8.0); NEUTROPHILS % MANUAL 86.0 % (45.0-75.0); PLATELET ESTIMATE NORMAL
[2025-07-25] VITALS: BP 127/66; PULSE 71; RESP 16; TEMP 37.3; O2SAT 100
[2025-07-25 04:00] VITALS: BP 111/52; PULSE 109; RESP 18; TEMP 36.4; O2SAT 97
[2025-07-25 07:40] LABS: BASOPHILS % 0.4 % (0.0-2.0); EOSINOPHILS % 1.8 % (0.0-5.0); HEMATOCRIT. 28.5 % (36.0-48.0); HEMOGLOBIN. 9.5 g/dL (12.0-16.0); LYMPHOCYTES % 8.5 % (20.0-50.0); MEAN PLATELET VOLUME 8.1 fl (7.4-10.4); MONOCYTES % 3.5 % (2.0-8.0); NEUTROPHILS % 85.8 % (40.0-76.0); PLATELET 167 x1000/uL (130-400); RED BLOOD CELL COUNT 3.07 mill/uL (4.2-5.4); RED CELL DISTRIBUTION WIDTH 14.8 % (11.6-14.6)
[2025-07-25 08:00] VITALS: BP 130/62; PULSE 104; RESP 20; TEMP 37.5; O2SAT 96
[2025-07-25 08:07] LABS: CREATININE 0.3 mg/dL (0.6-1.0)
[2025-07-25 08:08] LABS: UREA NITROGEN BLOOD 6 mg/dL (9-23)
[2025-07-25] MEDS ORDERED: MONT-46 PO (12:14)
[2025-07-25 15:04] VITALS: BP 134/76; PULSE 105; RESP 20; TEMP 99
== END 2025-07-25 15:43 | DRG 720 ==
LOC: ER 13:30 → EDBEDREQTM 14:57 → EDBEDREQ 14:57 → ENRESERV 16:48 → 5EST 16:57 → MICUSO 20:28 → 5WST 07-16 16:44 → 6EST 07-21 13:43
PROVIDERS: ADMIT Hospitalist; ATTEND Hospitalist
PROC: 5A09357 Assistance with Respiratory Ventilation, Less than 24 Consecutive Hours, Continuous Positive Airway Pressure (ICD-10-PCS; 2025-07-01)
PROC: 5A09357 Assistance with Respiratory Ventilation, Less than 24 Consecutive Hours, Continuous Positive Airway Pressure (ICD-10-PCS; principal; 2025-07-02)
PROC: 5A1955Z Respiratory Ventilation, Greater than 96 Consecutive Hours (ICD-10-PCS; 2025-07-02)
PROC: 0BH17EZ Insertion of Endotracheal Airway into Trachea, Via Natural or Artificial Opening (ICD-10-PCS; 2025-07-02)
PROC: 05HY33Z Insertion of Infusion Device into Upper Vein, Percutaneous Approach (ICD-10-PCS; 2025-07-02)
PROC: B54MZZZ Ultrasonography of Right Upper Extremity Veins (ICD-10-PCS; 2025-07-02)
PROC: 02HV33Z Insertion of Infusion Device into Superior Vena Cava, Percutaneous Approach (ICD-10-PCS; 2025-07-02)
PROC: B5181ZA Fluoroscopy of Superior Vena Cava using Low Osmolar Contrast, Guidance (ICD-10-PCS; 2025-07-02)
PROC: B548ZZA Ultrasonography of Superior Vena Cava, Guidance (ICD-10-PCS; 2025-07-02)
DX: A41.9 Sepsis, unspecified organism (principal); N17.0 Acute kidney failure with tubular necrosis; R65.21 Severe sepsis with septic shock; G72.81 Critical illness myopathy; J96.01 Acute respiratory failure with hypoxia; G93.41 Metabolic encephalopathy; E22.2 Syndrome of inappropriate secretion of antidiuretic hormone; E72.20 Disorder of urea cycle metabolism, unspecified; G82.50 Quadriplegia, unspecified; M62.82 Rhabdomyolysis; E87.20 Acidosis, unspecified; Z20.822 Contact with and (suspected) exposure to COVID-19; J18.9 Pneumonia, unspecified organism; E87.8 Other disorders of electrolyte and fluid balance, not elsewhere classified; E03.9 Hypothyroidism, unspecified; K21.9 Gastro-esophageal reflux disease without esophagitis; E66.811 Obesity, class 1; I11.9 Hypertensive heart disease without heart failure; D75.1 Secondary polycythemia; R73.9 Hyperglycemia, unspecified; E78.5 Hyperlipidemia, unspecified; J45.909 Unspecified asthma, uncomplicated; D64.9 Anemia, unspecified; K29.70 Gastritis, unspecified, without bleeding; J47.0 Bronchiectasis with acute lower respiratory infection; J84.10 Pulmonary fibrosis, unspecified; K80.20 Calculus of gallbladder without cholecystitis without obstruction; E87.6 Hypokalemia; J81.1 Chronic pulmonary edema; R74.01 Elevation of levels of liver transaminase levels; E83.42 Hypomagnesemia; I48.0 Paroxysmal atrial fibrillation; I95.1 Orthostatic hypotension; R13.10 Dysphagia, unspecified; E05.90 Thyrotoxicosis, unspecified without thyrotoxic crisis or storm; R26.9 Unspecified abnormalities of gait and mobility; R53.81 Other malaise; R74.8 Abnormal levels of other serum enzymes; Z68.30 Body mass index [BMI] 30.0-30.9, adult; Z87.01 Personal history of pneumonia (recurrent); Z83.3 Family history of diabetes mellitus; Z82.49 Family history of ischemic heart disease and other diseases of the circulatory system; Z79.899 Other long term (current) drug therapy
CPT/HCPCS: 31500; 31720; 36415; 36556; 36573; 36600; 71045; 71250; 76700; 76770; 77001; 80048; 80053; 80061; 80076; 80202; 81003; 82140; 82375; 82533; 82550; 82784; 82785; 82805; 82962; 82977; 83036; 83605; 83735; 83880; 83930; 83935; 84100; 84132; 84145; 84295; 84300; 84439; 84443; 84478; 84484; 85025; 85027; 85379; 86038; 86705; 86709; 87070; 87077; 87186; 87340; 87426; 92610; 93005; 93306; 93970; 94002; 94003; 94070; 94640; 94660; 94664; 94760; 96361; 96365; 96367; 96375; 97110; 97162; 97166; 97530; 97535; 98960; 99291; 99292; A4606; A6261; C1725; C1752; C1769; J0282; J0456; J0612; J0692; J1160; J1308; J1650; J1815; J1938; J2003; J2060; J2250; J2270; J2371; J2405; J2470; J2543; J2704; J2919; J3010; J3105; J3373; J3475; J3480; J3490; J7030; J7040; J7050; J7060; J7070; J7120; J7512; J7608